=== PATIENT | female | born 1985 | race African-American/Black ===

== ENCOUNTER 2016-07-08 23:22 | Emergency (ER) | payer SELFPAY ==
--- NOTE | 2016-07-09 06:43 | ER Document Report ---
ED Respiratory Problem - General Chief Complaint: Cough Stated Complaint: COUGH Mode of Arrival: Ambulatory Information source: Patient Notes: 31-year-old female presents to the emergency department complaining of persistent cough over the last 2 weeks. Patient reports began with URI symptoms , cough, congestion, and sore throat approximately 2 weeks ago. Reports sore throat and congestion have resolved however cough has persisted. States over the last 2-3 days has had associated substernal pain and posttussive emesis during coughing bouts. Reports symptoms seem to be worse at night. States cough is productive with greenish yellow sputum. Denies fever, shortness of breath, or nausea/vomiting or chest pain without cough. TRAVEL OUTSIDE OF THE [place] IN LAST 30 DAYS: No - HPI Patient complains to provider of: Cough Onset: Last week Duration: Worse/persistent Initiating Event: URI Quality of pain: Achy Severity: Mild Pain Level: 2 Cough: Productive Sputum amount: Scant Sputum color: Green, Yellow Similar symptoms previously: Yes Recently seen / treated by doctor: No - Related Data Allergies/Adverse Reactions: No Known Drug Allergies Allergy (Verified 12/23/14 21:12) Past Medical History - General Information source: Patient - Social History Smoking Status: Never Smoker Frequency of alcohol use: None Drug Abuse: None Lives with: Family Family History: Reviewed & Not Pertinent - Past Medical History Cardiac Medical History: Denies: Hx Pulmonary Embolism Pulmonary Medical History: Reports: Hx Asthma - childhood, resolved Denies: Hx Sleep Apnea, Hx Tuberculosis Renal/ Medical History: Denies: Hx Peritoneal Dialysis Skin Medical History: Denies Hx MRSA Infectious Medical History: Denies: Hx MRSA Past Surgical History: Reports: Hx Section - Immunizations Immunizations up to date: Yes Hx Diphtheria, Pertussis, Tetanus Vaccination: Yes Review of Systems - Review of Systems Constitutional: No symptoms reported EENT: No symptoms reported Cardiovascular: No symptoms reported Respiratory: See HPI Gastrointestinal: No symptoms reported Genitourinary: No symptoms reported Female Genitourinary: No symptoms reported Musculoskeletal: No symptoms reported Skin: No symptoms reported Hematologic/Lymphatic: No symptoms reported Neurological/Psychological: No symptoms reported -: Yes All other systems reviewed and negative Physical Exam - Vital signs Vitals: Temp Pulse Resp BP Pulse Ox 97.5 F 80 16 138/92 H 98 07/08/16 23:57 07/08/16 23:57 07/08/16 23:57 07/08/16 23:57 07/08/16 23:57 Interpretation: Normal - General General appearance: Appears well, Alert In distress: None - HEENT Head: Normocephalic, Atraumatic Eyes: Normal Conjunctiva: Normal Pupils: PERRL Ears: Normal External canal: Normal Tympanic membrane: Normal Sinus: Normal Nasal: Normal Mouth/Lips: Normal Mucous membranes: Normal, Moist Pharynx: Normal. No: Blood in hypopharynx, Erythema, Exudate, Peritonsillar abscess, Post nasal drainage, Retropharyngeal abscess, Tonsillar hypertrophy, Uvular edema, Potential airway comprom., Other Neck: Normal - Respiratory Respiratory status: No respiratory distress. No: Labored, Tachypnea Chest status: Nontender Breath sounds: Normal - CTAB, Nonproductive cough. No: Rhonchi, Wheezing Chest palpation: Normal - Cardiovascular Rhythm: Regular Heart sounds: Normal auscultation Murmur: No Pulses: Normal: Radial Normal capillary refill: Yes - Abdominal Inspection: Normal Distension: No distension Bowel sounds: Normal Tenderness: Nontender Organomegaly: No organomegaly - Back Back: Normal, Nontender - Extremities General upper extremity: Normal inspection, Nontender, Normal color, Normal ROM , Normal strength, Normal temperature General lower extremity: Normal inspection, Nontender, Normal color, Normal ROM , Normal strength, Normal temperature, Normal weight bearing - Neurological Neuro grossly intact: Yes Cognition: Normal Orientation: AAOx4 Stephanie Coma Scale Eye Opening: Spontaneous Stephanie Coma Scale Verbal: Oriented [place] Coma Scale Motor: Obeys Commands Stephanie Coma Scale Total: 15 Speech: Normal Motor strength normal: LUE, RUE, LLE, RLE Sensory: Normal - Psychological Associated symptoms: Normal affect, Normal mood - Skin Skin Temperature: Warm Skin Moisture: Dry Skin Color: Normal Course - Re-evaluation Re-evalutation: 07/09/16 06:30 Patient hemodynamically stable, in no distress, afebrile, nontoxic, and appears well-hydrated. Patient is not dyspneic and very well-appearing. Chest x-ray unremarkable. No suggestion of significant or emergent infectious, cardiovascular, or pulmonary etiology at this time. Will treat for likely uncomplicated bronchitis at this time. Patient appears stable for discharge and agrees with this, follow-up, and ED return precautions - Vital Signs Vital signs: Temp Pulse Resp BP Pulse Ox 97.5 F 80 16 138/92 H 98 07/08/16 23:57 07/08/16 23:57 07/08/16 23:57 07/08/16 23:57 07/08/16 23:57 - Diagnostic Test Radiology reviewed: Image reviewed, Reports reviewed Discharge - Discharge Clinical Impression: Bronchitis Condition: Stable Disposition: HOME, SELF-CARE Additional Instructions: BRONCHITIS: You have acute bronchitis. This disease is an infection or inflammation of the air passageways in your lungs. Symptoms usually include cough, low grade fever, shortness of breath, and wheezing. The cough usually persists for a couple of weeks. Most cases of bronchitis get better without antibiotics. We prescribe antibiotics when we believe bacteria are damaging your airways, or if there's high risk the bronchitis will worsen into pneumonia. Increase your fluid intake. A cool mist humidifier may make your lungs more comfortable. An expectorant (cough medicine that loosens phlegm) can help. If you smoke, STOP!!! Recovery from bronchitis can be somewhat slow, but you should see improvement within a day or two. Repeated episodes of bronchitis may result in lung damage -- for example, chronic bronchitis, recurrent pneumonias, or emphysema. Call the doctor if you develop increasing fever, shortness of breath, chest pain, bloody sputum, or otherwise worsen. If you have not improved at all after several days, contact the physician. COUGH-SUPPRESSANT & EXPECTORANT MEDICATION: You are to use a cough medication as needed for relief of symptoms. This medicine is a combination of an expectorant (to make the mucous thinner and more easily "coughed up") and a cough suppressant (to reduce the frequency of coughing). The cough-suppressant medicine is related to narcotics. You may experience mild nausea and sleepiness. Some patients who are very sensitive to narcotics may have stomach pain from this medicine. Taking the medicine with food reduces these side effects. Do not drive or work with machinery until you know how this medicine affects you. The expectorant should have no side effects. Iodine-containing expectorants (such as organidin) should not be taken by persons with active thyroid disease unless approved by your doctor. Call the doctor if you develop shortness of breath, hives, rash, itching, lightheadedness, or severe nausea and vomiting. INHALED BRONCHODILATORS: You have received a treatment of and/or prescription for an inhaled bronchodilator -- a medication which stimulates the airways in the lung to dilate. This improves the flow of air in asthma, bronchitis, and emphysema. These medicines have some similarity to adrenaline, and can cause similar side effects: shakiness, racing heart, and a sense of nervousness. These side effects decrease with time. Contact your doctor if these side effects are severe. Do not over-use the medicine. Too-frequent use of the inhaler may make it ineffective. Call your doctor if the inhaler is not controlling your symptoms at the prescribed doses. STEROID MEDICATION: You have been given an injection of or oral medicine of the cortisone/ steroid class. This medication is used to control inflammation or allergy. Maikol t is usually only given for a short period of time, until the acute process subsides. There are usually no side effects from short-term use of cortisone-like medications. Some persons feel an increased sense of well-being and are not sleepy at bedtime. Long-term use of cortisone medications is best avoided, unless required for a severe condition. If your condition does not remit, or relapses after the course of corticosteroid medication, you should consult your physician. FOLLOW-UP CARE: Drink plenty of fluids. Follow-up with your primary care provider this week. Return to the emergency department for any worsening symptoms or concerns. Prescriptions: Guaifenesin/D-Methorphan Hb [Guaifenesin-Dextromethorph Tab] 1 each PO Q12HP PRN #8 tab.sr.12h PRN Reason: Cough Albuterol Sulfate [Proair HFA Inhalation Aerosol 8.5 gm MDI] 2 puff IH Q4H PRN # 1 mdi PRN Reason: Prednisone [Deltasone 10 mg Tablet] 10 mg PO ASDIR PRN #21 tablet PRN Reason: Forms: Elevated Blood Pressure, Return to Work
[2016-07-09 07:16] VITALS: BP 151/104
== END 2016-07-09 07:06 | disposition home or self-care (01) ==
LOC: ER 23:22
DX: J40 Bronchitis, not specified as acute or chronic (principal); R05 Cough; R07.89 Other chest pain
CPT/HCPCS: 71020; 99283

== ENCOUNTER 2017-10-21 11:30 | Emergency (ER) | payer SELFPAY ==
--- NOTE | 2017-10-21 12:52 | ER Document Report ---
ED Skin Rash/Insect Bite/Abscs - General Chief Complaint: Skin Problem Stated Complaint: POSSIBLE RASH, LEG SWELLING Time Seen by Provider: 10/21/17 12:44 Notes: The patient is a 32-year-old female who presents with 3 days of a rash over her left lower leg. She has had this multiple times in the past and saw a wood tank builder, but she is not sure what is causing this. Usually antibiotics and antifungal cream will make it go away. She denies fevers, bug bites, difficulty walking for a rash on her hands, feet or mouth. TRAVEL OUTSIDE OF THE [place] IN LAST 30 DAYS: No - Related Data Allergies/Adverse Reactions: No Known Drug Allergies Allergy (Verified 10/21/17 11:48) Past Medical History - General Information source: Patient - Social History Smoking Status: Never Smoker Chew tobacco use (# tins/day): No Frequency of alcohol use: Social Drug Abuse: None Family History: Reviewed & Not Pertinent Patient has suicidal ideation: No Patient has homicidal ideation: No - Past Medical History Cardiac Medical History: Denies: Hx Pulmonary Embolism Pulmonary Medical History: Reports: Hx Asthma - childhood, resolved Denies: Hx Sleep Apnea, Hx Tuberculosis Renal/ Medical History: Denies: Hx Peritoneal Dialysis Skin Medical History: Denies Hx MRSA Infectious Medical History: Denies: Hx MRSA Past Surgical History: Reports: Hx Section - Immunizations Immunizations up to date: Yes Hx Diphtheria, Pertussis, Tetanus Vaccination: Yes Review of Systems - Review of Systems Notes: REVIEW OF SYSTEMS: CONSTITUTIONAL: -fevers, -chills EENT: -eye pain, -difficulty swallowing, -nasal congestion RESPIRATORY: -cough, -SOB SKIN: +rash HEMATOLOGIC: -easy bruising or bleeding. LYMPHATIC: -swollen, enlarged glands. NEUROLOGICAL: -altered mental status or loss of consciousness, -headache, - neurologic symptoms ALL OTHER SYSTEMS REVIEWED AND NEGATIVE. Physical Exam - Vital signs Vitals: Temp Pulse Resp BP Pulse Ox 98.3 F 88 18 145/94 H 100 10/21/17 11:48 10/21/17 11:48 10/21/17 11:48 10/21/17 11:48 10/21/17 11:48 - Notes Notes: PHYSICAL EXAMINATION: GENERAL: Well-appearing, well-nourished and in no acute distress. HEAD: Atraumatic, normocephalic. EYES: Pupils equal round and reactive to light, extraocular movements intact, sclera anicteric, conjunctiva are normal. ENT: nares patent, oropharynx clear without exudates. Moist mucous membranes. NECK: Normal range of motion, supple without lymphadenopathy LUNGS: Breath sounds clear to auscultation bilaterally and equal. No wheezes rales or rhonchi. HEART: Regular rate and rhythm without murmurs ABDOMEN: Soft, nontender, normoactive bowel sounds. No guarding, no rebound. No masses appreciated. EXTREMITIES: Normal range of motion, no pitting or edema. No cyanosis. NEUROLOGICAL: Cranial nerves grossly intact. Normal speech, normal gait. Normal sensory and motor exams. PSYCH: Normal mood, normal affect. SKIN: discrete patch of scaly rash ~6 cm; lateral aspect of left lower leg with irregular pattern of erythema up leg Course - Re-evaluation Re-evalutation: Patient's rash appears benign in nature. She has had this multiple times in the past and it usually responds to antibiotics and antifungal cream. She has already seen a wood tank builder for this and instructed her to follow-up with the wood tank builder for further evaluation treatment. - Vital Signs Vital signs: Temp Pulse Resp BP Pulse Ox 98.3 F 88 18 145/94 H 100 10/21/17 11:48 10/21/17 11:48 10/21/17 11:48 10/21/17 11:48 10/21/17 11:48 Discharge - Discharge Clinical Impression: Rash Condition: Stable Disposition: HOME, SELF-CARE Additional Instructions: Take the antibiotics and use the antifungal cream. Follow-up with your wood tank builder. Prescriptions: Cephalexin Monohydrate [Keflex 500 mg Capsule] 500 mg PO BID 7 Days capsule Clotrimazole 1% Topical [Lotrimin 1% Topical Soln 10 ml] 15 applic TP DAILY #1 bottle Sulfamethoxazole/Trimethoprim [Bactrim Ds Tablet] 1 each PO BID #20 tablet Forms: Elevated Blood Pressure Referrals: [facility] [Outside] - Follow up as needed
[2017-10-21 12:58] VITALS: BP 152/99
== END 2017-10-21 12:58 | disposition home or self-care (01) ==
LOC: ER 11:30
DX: R21 Rash and other nonspecific skin eruption (principal)
CPT/HCPCS: 99282

== ENCOUNTER 2017-10-29 14:24 | Emergency (ER) | payer SELFPAY ==
[2017-10-29] MEDS ORDERED: ACETAMINOPHEN 325 MG TABLET PO ONE (14:51)
--- NOTE | 2017-10-29 14:52 | ER Document Report ---
ED Medical Screen (RME) - General Chief Complaint: Headache Stated Complaint: LOW BACK PAIN/ HEADACHE Time Seen by Provider: 10/29/17 14:30 TRAVEL OUTSIDE OF THE [place] IN LAST 30 DAYS: No - HPI Patient complains to provider of: Headache, low back pain radiating down leg Onset: Yesterday Notes: 10/29/17 14:51 Patient is a 32-year-old female presenting to the emergency room complaining of 2 day history of low back pain radiating down her legs, headache, noted to have a fever of 100.5 in triage area, denies any cough, cold or congestion, no abdominal pain, no vomiting or diarrhea - Related Data Allergies/Adverse Reactions: No Known Drug Allergies Allergy (Verified 10/29/17 14:25) Past Medical History - Social History Chew tobacco use (# tins/day): No Frequency of alcohol use: Occasional Drug Abuse: None - Past Medical History Cardiac Medical History: Reports: Hx Hypertension Denies: Hx Pulmonary Embolism Pulmonary Medical History: Reports: Hx Asthma - childhood, resolved Denies: Hx Sleep Apnea, Hx Tuberculosis Renal/ Medical History: Denies: Hx Peritoneal Dialysis Skin Medical History: Denies Hx MRSA Infectious Medical History: Denies: Hx MRSA Past Surgical History: Reports: Hx SectionComment Only: Hx Tonsillectomy - adnoids - Immunizations Immunizations up to date: Yes Hx Diphtheria, Pertussis, Tetanus Vaccination: Yes Physical Exam - Vital signs Vitals: Temp Pulse Resp BP Pulse Ox 100.5 F H 105 H 16 144/77 H 99 10/29/17 14:33 10/29/17 14:33 10/29/17 14:33 10/29/17 14:33 10/29/17 14:33 Course - Vital Signs Vital signs: Temp Pulse Resp BP Pulse Ox 100.5 F H 105 H 16 144/77 H 99 10/29/17 14:33 10/29/17 14:33 10/29/17 14:33 10/29/17 14:33 10/29/17 14:33
[2017-10-29 15:51] LABS: ALANINE AMINOTRANSFERASE 23 U/L (9-52); ALBUMIN 4.3 g/dL (3.5-5.0); ALKALINE PHOSPHATASE 72 U/L (38-126); ANION GAP 15 (5-19); ASPARTATE AMINO TRANSFERASE 20 U/L (14-36); BILIRUBIN,DIRECT 0.2 mg/dL (0.0-0.4); BILIRUBIN,TOTAL 0.8 mg/dL (0.2-1.3); BLOOD UREA NITROGEN 6 mg/dL (7-20); CALCIUM 9.7 mg/dL (8.4-10.2); CARBON DIOXIDE 25 mmol/L (22-30); CHLORIDE 104 mmol/L (98-107); GLUCOSE 93 mg/dL (75-110); POTASSIUM 4.5 mmol/L (3.6-5.0); SODIUM 144.2 mmol/L (137-145); TOTAL PROTEIN 7.6 g/dL (6.3-8.2)
[2017-10-29 15:53] LABS: BILIRUBIN,URINE NEGATIVE (NEGATIVE); GLUCOSE, URINE NEGATIVE (NEGATIVE); KETONES,URINE NEGATIVE (NEGATIVE); LEUKOCYTE ESTERASE,URINE MODERATE (NEGATIVE); NITRITE,URINE NEGATIVE (NEGATIVE); PROTEIN,URINE 100 mg/dL (NEGATIVE); URINE SPECIFIC GRAVITY 1.012; UROBILINOGEN,URINE NEGATIVE mg/dL (<2.0)
[2017-10-29 15:54] LABS: APPEARANCE,URINE TURBID; COLOR,URINE RED
[2017-10-29 16:00] LABS: HEMATOCRIT 35.8 % (36.0-47.0); HEMOGLOBIN 11.8 g/dL (12.0-15.5); MEAN CORPUSCULAR HEMOGLOBIN 29.5 pg (27.0-33.4); MEAN CORPUSCULAR HGB CONC 32.8 g/dL (32.0-36.0); MEAN CORPUSCULAR VOLUME 90 fl (80-97); PLATELET COUNT 293 10^3/uL (150-450); RED BLOOD COUNT 3.98 10^6/uL (3.72-5.28); RED CELL DISTRIBUTION WIDTH 12.8 % (11.5-14.0); WHITE BLOOD COUNT 14.8 10^3/uL (4.0-10.5)
[2017-10-29 16:20] LABS: ABSOLUTE LYMPHOCYTES# (MANUAL) 0.6 10^3/uL (0.5-4.7); ABSOLUTE MONOCYTES # (MANUAL) 0.3 10^3/uL (0.1-1.4); ABSOLUTE NEUTROPHILS# (MANUAL) 13.9 10^3/uL (1.7-8.2); BASOPHILS % (MANUAL) 0 % (0-2); EOSINOPHILS % (MANUAL) 0 % (0-6); LYMPHOCYTES % (MANUAL) 4 % (13-45); MONOCYTES % (MANUAL) 2 % (3-13); SEGMENTED NEUTROPHILS % (MAN) 94 % (42-78); TOTAL CELLS COUNTED 100
[2017-10-29 16:21] LABS: HYPOCHROMASIA SLIGHT; PLATELET COMMENT ADEQUATE; PLATELET LARGE PRESENT
--- NOTE | 2017-10-29 16:31 | ER Document Report ---
ED General - General Chief Complaint: Headache Stated Complaint: LOW BACK PAIN/ HEADACHE Time Seen by Provider: 10/29/17 14:30 Mode of Arrival: Ambulatory Information source: Patient Notes: 32-year-old female presented ED for complaint of body aches and headache for the last 2 days. She states she started her period and sometimes she has cramping but not like today. She also has some type of cellulitis to bilateral legs that she was seen here on 21 October and was given prescriptions for Keflex and Septra. She states she did not start them until this morning she cannot afford them. States she did take [email or web address] and she states she had a headache earlier but after she got the Tylenol the headache is much better. He states that the infection to the bilateral legs is much better she has been using the cream they gave her. TRAVEL OUTSIDE OF THE [place] IN LAST 30 DAYS: No - HPI Onset: Other - Body aches backache has been for 2 days started her period 2 days ago. The leg pain is where her rashes and that has been since before her last visit. Her headache has been for couple days Quality of pain: Achy Associated symptoms: Body/muscle aches, Chills, Fever, Headache, Other Exacerbated by: Denies Relieved by: Other Similar symptoms previously: Yes Recently seen / treated by doctor: Yes - Related Data Allergies/Adverse Reactions: No Known Drug Allergies Allergy (Verified 10/29/17 14:25) Past Medical History - General Information source: Patient Last Menstrual Period: She is on her period now - Social History Smoking Status: Never Smoker Cigarette use (# per day): No Chew tobacco use (# tins/day): No Smoking Education Provided: No Frequency of alcohol use: Occasional Drug Abuse: None Occupation: [employer] Lives with: Family Family History: Arthritis, DM, Hypertension Patient has suicidal ideation: No Patient has homicidal ideation: No - Past Medical History Cardiac Medical History: Reports: Hx Hypertension Pulmonary Medical History: Reports: Hx Asthma - childhood, resolved EENT Medical History: Reports: None Neurological Medical History: Reports: None Endocrine Medical History: Reports: None Renal/ Medical History: Reports: None Malignancy Medical History: Reports: None GI Medical History: Reports: None Musculoskeletal Medical History: Reports None Skin Medical History: Reports Hx Cellulitis Psychiatric Medical History: Reports: None Infectious Medical History: Denies: Hx MRSA Past Surgical History: Reports: Hx SectionComment Only: Hx Tonsillectomy - adnoids - Immunizations Immunizations up to date: Yes Hx Diphtheria, Pertussis, Tetanus Vaccination: Yes Review of Systems - Review of Systems Constitutional: Chills, Fever, Recent illness EENT: No symptoms reported Cardiovascular: No symptoms reported Respiratory: No symptoms reported Gastrointestinal: Abdominal pain Genitourinary: Frequency, Flank pain Female Genitourinary: No symptoms reported Musculoskeletal: Back pain, Muscle pain Skin: No symptoms reported Hematologic/Lymphatic: No symptoms reported Neurological/Psychological: Headaches -: Yes All other systems reviewed and negative Physical Exam - Vital signs Vitals: Temp Pulse Resp BP Pulse Ox 100.5 F H 105 H 16 144/77 H 99 10/29/17 14:33 10/29/17 14:33 10/29/17 14:33 10/29/17 14:33 10/29/17 14:33 Interpretation: Normal - General General appearance: Appears well, Alert - HEENT Head: Normocephalic, Atraumatic Eyes: Normal Pupils: PERRL - Respiratory Respiratory status: No respiratory distress Chest status: Nontender Breath sounds: Normal Chest palpation: Normal - Cardiovascular Rhythm: Regular Heart sounds: Normal auscultation Murmur: No - Abdominal Inspection: Normal Distension: No distension Bowel sounds: Normal Tenderness: Nontender Organomegaly: No organomegaly - Back Back: Normal, Nontender. No: Tender, Deformity/step-off, Vertebra tenderness, Scars - Extremities General upper extremity: Normal inspection, Nontender, Normal color, Normal ROM , Normal temperature General lower extremity: Normal color, Normal ROM, Normal temperature, Normal weight bearing. No: Fercho's sign Calf: Tender, Other - Cellulitis to both posterior calf she states she was prescribed Bactrim and Keflex but was not able to start until today - Neurological Neuro grossly intact: Yes Cognition: Normal Orientation: AAOx4 Stephanie Coma Scale Eye Opening: Spontaneous Stephanie Coma Scale Verbal: Oriented Stephanie Coma Scale Motor: Obeys Commands Stephanie Coma Scale Total: 15 Speech: Normal Motor strength normal: LUE, RUE, LLE, RLE Sensory: Normal - Psychological Associated symptoms: Normal affect, Normal mood - Skin Skin Temperature: Warm Skin Moisture: Dry Skin Color: Normal Course - Re-evaluation Re-evalutation: 10/29/17 16:[address] Jewell and she agreed that shot of Rocephin and patient to continue the antibiotics she is already prescribed will cover her UTI. Urine culture was ordered. Patient will be discharged home. Patient verbalized understanding of need to take her antibiotics as prescribed and increase her p.o. fluids. She was also given a prescription of Compazine to take with Benadryl and ibuprofen for her headache. Patient instructed to follow -up with her primary doctor. Patient verbalized understanding and agreement. - Vital Signs Vital signs: Temp Pulse Resp BP Pulse Ox 98.9 F 98 16 145/87 H 98 10/29/17 16:44 10/29/17 16:44 10/29/17 14:33 10/29/17 16:44 10/29/17 16:44 - Laboratory Result Diagrams: 10/29/17 15:20 10/29/17 15:20 Laboratory results interpreted by me: 10/29/17 10/29/17 10/29/17 15:20 15:20 15:20 WBC 14.8 H Hgb 11.8 L Hct 35.8 L Seg Neuts % (Manual) 94 H Lymphocytes % (Manual) 4 L Monocytes % (Manual) 2 L Abs Neuts (Manual) 13.9 H BUN 6 L Urine Protein 100 H Urine Blood LARGE H Ur Leukocyte Esterase MODERATE H Discharge - Discharge Clinical Impression: Headache Qualifiers: Headache type: unspecified Headache chronicity pattern: unspecified pattern Intractability: not intractable Qualified Code(s): R51 - Headache UTI (urinary tract infection) Qualifiers: Urinary tract infection type: site unspecified Hematuria presence: without hematuria Qualified Code(s): N39.0 - Urinary tract infection, site not specified Condition: Stable Disposition: HOME, SELF-CARE Instructions: Family Physicians / Practices Additional Instructions: HEADACHE: The physician does not feel that the headache you are experiencing has a serious underlying cause. Most headaches are due to emotional stress, with resultant muscle tension (tension headache). Occasionally, headaches are secondary to changes in the blood vessels of the scalp (vascular headache and migraine headache). Sometimes, a headache is the first symptom of another developing illness, such as a viral infection. You have no evidence of stroke, bleeding, meningitis, or other serious cause of your headache. The treatment of headaches varies with the severity and cause of the pain. Not all headaches need pain shots. In fact, there is evidence that using narcotics for headaches may make them worse in the long run. The physician will determine the therapy that's in your best interest. If you develop a fever, if the headache is different from any you've previously experienced, or if the headache progressively worsens, then call your physician at once or go to the emergency room. URINARY TRACT INFECTION: Your evaluation indicates that you have a urinary tract infection. This is due to germs growing in the bladder. This is a common problem. This infection usually responds quickly to antibiotics. Your antibiotic should be taken exactly as prescribed. Drink plenty of fluids -- three to four quarts a day. Occasionally, a bladder anesthetic will be prescribed to help stop the feeling of urgency until the antibiotic has a chance to clear the infection. This may cause your urine to be dark orange. Certain urine infections require a culture. If the doctor obtained a culture, the results will be back in two days. You should call to see if a change in treatment is needed. A repeat urinalysis after you finish treatment is often recommended. The physician will let you know if further testing is required. Call the doctor if you develop fever, chills, flank pain, inability to urinate, or blood in the urine. USE OF DIPHENHYDRAMINE: Diphenhydramine (Benadryl) is an antihistamine and has been recommended to help treat your headache and to prevent side effects of other medications used to treat headaches. The medication can be repeated four times daily. Age Elixir (12.5 mg/tsp) 25 mg pill adult 1-2 tabs Antihistamines may cause drowsiness, especially with the first dose. Do not operate machinery or drive while under the effects of the medication. Do not combine the medication with alcohol, or with any other medication without talking to your doctor. COMPAZINE FOR HEADACHE: You have received therapy for headaches, using Compazine. This treatment is dramatically successful in relieving the headache in about 50 percent of cases. When it works, it provides a rapid method of eliminating the headache without resorting to narcotics (and the problems associated with them). Most patients still feel fully alert after the Compazine, but others may be slightly drowsy. It's best not to drive or work with machinery for six to eight hours. Do not take alcohol or other medication unless you discuss it with the doctor. If you develop tightness and spasms in your muscles, especially the neck and tongue, you should return. This is a side effect which can be treated. TRIMETHOPRIM-SULFA: Continue your Bactrim that she just started this morning. You have been given a prescription for trimethoprim-sulfa (TMS, Septra, Bactrim). This is a combination antibiotic of the sulfa class, often used for urinary tract infections, middle ear infections, bronchitis, shigella intestinal infection, and Pneumocystis pneumonia. TMS is usually well-tolerated. Occasional side effects include nausea and decreased appetite. Septra is not recommended for infants less than two months of age. Do not take this medication if you have experienced severe side effects or allergy to sulfa medicine. You should stop this medicine at once and contact your physician if you develop any rash, joint pain, shortness of breath, bruising, or jaundice ( yellow color in the skin), or if you develop any other new or unusual symptoms. CEPHALEXIN: Continue your Keflex that she just started this morning The antibiotic you've been prescribed is a member of the cephalosporin class. This type of antibiotic covers a wide variety of infections, including those of the skin, lungs, and urinary tract. It's useful for staph infections. This antibiotic is slightly similar to the penicillin family. In rare cases , a person who is allergic to penicillin will also be allergic to this medication. If you have had a severe allergic reaction to penicillin, and have not taken this antibiotic since that time, notify your doctor. Antibiotics which cover many germs ("broad spectrum" antibiotics) are more likely to cause diarrhea or "yeast" infections. Women prone to vaginal yeast problems may suffer an attack after taking this antibiotic. In infants, oral thrush (white spots "stuck" on the cheek) or yeast diaper rash may result. See your doctor if these problems occur. Call at once if you develop itching, hives , shortness of breath, or lightheadedness. Call your primary doctor and schedule a follow-up appointment to have a urine done in 1 week. If you cannot follow-up with her primary doctor return here and have your urine rechecked. Please return for any increasing fevers any other complications. FOLLOW-UP CARE: If you have been referred to a physician for follow-up care, call the physician s office for an appointment as you were instructed or within the next two days. If you experience worsening or a significant change in your symptoms, notify the physician immediately or return to the Emergency Department at any time for re-evaluation. Prescriptions: Prochlorperazine Maleate [Compazine 10 mg Tablet] 10 mg PO Q6HP PRN #10 tablet PRN Reason: Forms: Elevated Blood Pressure, Return to Work
[2017-10-29] MEDS ORDERED: CEFTRIAXONE INJ 1000 MG VIAL IM ONE (16:32)
[2017-10-29] MEDS ORDERED: LIDOCAINE 1% INJ-PF (10 MG/ML) 30 ML SDV INJ ONE (16:32)
[2017-10-29 16:45] VITALS: BP 145/87
== END 2017-10-29 17:05 | disposition home or self-care (01) ==
LOC: ER 14:24
DX: N39.0 Urinary tract infection, site not specified (principal); R51 Headache; M54.5 Low back pain; M79.1 Myalgia; I10 Essential (primary) hypertension
CPT/HCPCS: 99283; 96372; 36415; 87086; 85025; 81025; 87088; 80053; 81001; J3490; J0696

== ENCOUNTER 2017-11-03 12:44 | Emergency (ER) | payer SELFPAY ==
--- NOTE | 2017-11-03 15:31 | RADIOLOGY REPORT (SQ) ---
EXAM DESCRIPTION: VENOUS BILATERAL LOWER COMPLETED DATE/TIME: 11/03/2017 3:24 pm REASON FOR STUDY: leg swelling L>right COMPARISON: None. TECHNIQUE: Dynamic and static morin scale and color images acquired of both lower extremity venous sy stems. Selected spectral images acquired with additional compression and augmentation maneuvers. Imag es stored on PACS. LIMITATIONS: None. FINDINGS: RIGHT LEG COMMON FEMORAL AND FEMORAL: Normal phasicity, compression and augmentation. No visualized echogenic m aterial on morin scale. No defects on color images. POPLITEAL: Normal compression and augmentation. No visualized echogenic material on morin scale. No de fects on color images. CALF VESSELS: Normal compression and augmentation. No visualized echogenic material on morin scale. No defects on color image. GSV AND SSV: Normal compression. No visualized echogenic material on morin scale. No defects on color images. ANY DEEP VENOUS INSUFFICIENCY: Not evaluated. ANY EVIDENCE OF POPLITEAL CYST: No. OTHER: No other significant finding. LEFT LEG COMMON FEMORAL AND FEMORAL: Normal phasicity, compression and augmentation. No visualized echogenic m aterial on morin scale. No defects on color images. POPLITEAL: Normal compression and augmentation. No visualized echogenic material on morin scale. No de fects on color images. CALF VESSELS: Normal compression and augmentation. No visualized echogenic material on morin scale. No defects on color images. GSV AND SSV: Normal compression. No visualized echogenic material on morin scale. No defects on color images. ANY DEEP VENOUS INSUFFICIENCY: Not evaluated. ANY EVIDENCE POPLITEAL CYST: No. OTHER: No other significant finding. IMPRESSION: NO EVIDENCE DVT OR SVT IN EITHER LEG. TECHNICAL DOCUMENTATION: JOB ID: [id number] [employer]- All Rights Reserved Reading location - IP/workstation name: [email or web address]
--- NOTE | 2017-11-03 15:46 | ER Document Report ---
ED General - General Chief Complaint: Leg Swelling Stated Complaint: LEG SWELLING Time Seen by Provider: 11/03/17 13:35 TRAVEL OUTSIDE OF THE [place] IN LAST 30 DAYS: No - Related Data Allergies/Adverse Reactions: No Known Drug Allergies Allergy (Verified 11/03/17 13:31) Past Medical History - Social History Smoking Status: Never Smoker Chew tobacco use (# tins/day): No Frequency of alcohol use: Occasional Drug Abuse: None Family History: Arthritis, DM, Hypertension Patient has suicidal ideation: No Patient has homicidal ideation: No - Past Medical History Cardiac Medical History: Reports: Hx Hypertension Denies: Hx Pulmonary Embolism Pulmonary Medical History: Reports: Hx Asthma - childhood, resolved Denies: Hx Sleep Apnea, Hx Tuberculosis Renal/ Medical History: Denies: Hx Peritoneal Dialysis Skin Medical History: Reports Hx Cellulitis, Denies Hx MRSA Infectious Medical History: Denies: Hx MRSA Past Surgical History: Reports: Hx SectionComment Only: Hx Tonsillectomy - adnoids - Immunizations Immunizations up to date: Yes Hx Diphtheria, Pertussis, Tetanus Vaccination: Yes Physical Exam - Vital signs Vitals: Temp Pulse Resp BP Pulse Ox 98 F 87 18 116/63 100 11/03/17 12:55 11/03/17 12:55 11/03/17 12:55 11/03/17 12:55 11/03/17 12:55 Course - Vital Signs Vital signs: Temp Pulse Resp BP Pulse Ox 98 F 87 18 116/63 100 11/03/17 12:55 11/03/17 12:55 11/03/17 12:55 11/03/17 12:55 11/03/17 12:55 Discharge - Discharge Clinical Impression: Localized swelling of both lower legs, Cellulitis Condition: Good Disposition: HOME, SELF-CARE Instructions: Cellulitis ([facility]), Dependent Edema ([facility]) Additional Instructions: Your ultrasound today does not show any signs of blood clots. Your examination today shows slight skin infection otherwise normal cellulitis. Please continue the antibiotics as previously prescribed. Return to ER symptoms worsen follow- up with your primary care physician. We recommend elevating her legs at nighttime. Until the infectious process totally resolved she will have increased swelling even after he finished her antibiotics I would expect the swelling to continue for another 7 days. Please continue to elevate he can try to compression stockings as prescribed to help out with any swelling.
--- NOTE | 2017-11-03 15:48 | ER Document Report ---
ED General - General Chief Complaint: Leg Swelling Stated Complaint: LEG SWELLING Time Seen by Provider: 11/03/17 13:35 TRAVEL OUTSIDE OF THE [place] IN LAST 30 DAYS: No - HPI Patient complains to provider of: Bilateral leg swelling Notes: Patient coming in for bilateral leg swelling left greater than right. Patient states ongoing for greater than a week. Patient states was seen a few days ago at urgent care diagnosed with cellulitis has only been on antibiotics Keflex and Bactrim for the last 2 days. Patient states more concerned about swelling especially that the left leg is bigger. Denies any recent travel or trauma denies history of DVT in the past. Patient denies history of any renal issues or hypertension. Patient states whenever she was not at work and elevating her legs at home the swelling would go down. Patient denies wearing compression stockings. - Related Data Allergies/Adverse Reactions: No Known Drug Allergies Allergy (Verified 11/03/17 13:31) Past Medical History - Social History Smoking Status: Never Smoker Chew tobacco use (# tins/day): No Frequency of alcohol use: Occasional Drug Abuse: None Family History: Arthritis, DM, Hypertension Patient has suicidal ideation: No Patient has homicidal ideation: No - Past Medical History Cardiac Medical History: Reports: Hx Hypertension Denies: Hx Pulmonary Embolism Pulmonary Medical History: Reports: Hx Asthma - childhood, resolved Denies: Hx Sleep Apnea, Hx Tuberculosis Renal/ Medical History: Denies: Hx Peritoneal Dialysis Skin Medical History: Reports Hx Cellulitis, Denies Hx MRSA Infectious Medical History: Denies: Hx MRSA Past Surgical History: Reports: Hx SectionComment Only: Hx Tonsillectomy - adnoids - Immunizations Immunizations up to date: Yes Hx Diphtheria, Pertussis, Tetanus Vaccination: Yes Review of Systems - Review of Systems Constitutional: No symptoms reported EENT: No symptoms reported Cardiovascular: No symptoms reported Respiratory: No symptoms reported Gastrointestinal: No symptoms reported Genitourinary: No symptoms reported Female Genitourinary: No symptoms reported Musculoskeletal: Leg swelling Skin: No symptoms reported Hematologic/Lymphatic: No symptoms reported Neurological/Psychological: No symptoms reported -: Yes All other systems reviewed and negative Physical Exam - Vital signs Vitals: Temp Pulse Resp BP Pulse Ox 98 F 87 18 116/63 100 11/03/17 12:55 11/03/17 12:55 11/03/17 12:55 11/03/17 12:55 11/03/17 12:55 Interpretation: Normal - General General appearance: Appears well, Alert - HEENT Head: Normocephalic, Atraumatic Eyes: Normal Pupils: PERRL - Respiratory Respiratory status: No respiratory distress Chest status: Nontender Breath sounds: Normal Chest palpation: Normal - Cardiovascular Rhythm: Regular Heart sounds: Normal auscultation Murmur: No - Abdominal Inspection: Normal Distension: No distension Bowel sounds: Normal Tenderness: Nontender Organomegaly: No organomegaly - Back Back: Normal, Nontender - Extremities General upper extremity: Normal inspection, Nontender, Normal color, Normal ROM , Normal temperature General lower extremity: Nontender, Edema, Normal color, Normal ROM, Normal temperature, Normal weight bearing. No: Normal inspection - Patient coming in for leg swelling left greater than right patient has venous stasis changes to the skin with some erythema around his venous stasis changes possibly consistent with cellulitis process. There is no calf tenderness bilaterally - Neurological Neuro grossly intact: Yes Cognition: Normal Orientation: AAOx4 Rowan Coma Scale Eye Opening: Spontaneous Stephanie Coma Scale Verbal: Oriented Stephanie Coma Scale Motor: Obeys Commands Stephanie Coma Scale Total: 15 Speech: Normal Motor strength normal: LUE, RUE, LLE, RLE Sensory: Normal - Psychological Associated symptoms: Normal affect, Normal mood - Skin Skin Temperature: Warm Skin Moisture: Dry Skin Color: Normal Course - Re-evaluation Re-evalutation: 11/03/17 20:20 Ultrasound negative for DVT. Patient was encouraged to continue her antibiotics at this time. Follow-up primary care physician elevate her legs whenever not working. Will give the patient a prescription for compression stockings. - Vital Signs Vital signs: Temp Pulse Resp BP Pulse Ox 98.8 F 83 18 124/75 100 11/03/17 15:55 11/03/17 15:55 11/03/17 15:55 11/03/17 15:55 11/03/17 15:55 Discharge - Discharge Clinical Impression: Localized swelling of both lower legs Cellulitis Qualifiers: Site of cellulitis: unspecified site Qualified Code(s): L03.90 - Cellulitis, unspecified Condition: Good Disposition: HOME, SELF-CARE Instructions: Cellulitis ([facility]), Dependent Edema ([facility]) Additional Instructions: Your ultrasound today does not show any signs of blood clots. Your examination today shows slight skin infection otherwise normal cellulitis. Please continue the antibiotics as previously prescribed. Return to ER symptoms worsen follow- up with your primary care physician. We recommend elevating her legs at nighttime. Until the infectious process totally resolved she will have increased swelling even after he finished her antibiotics I would expect the swelling to continue for another 7 days. Please continue to elevate he can try to compression stockings as prescribed to help out with any swelling. Prescriptions: Compression Socks, Medium [Futuro Restoring] 1 each [facility] DAILY #1 each Forms: Return to Work
[2017-11-03 15:57] VITALS: BP 124/75
== END 2017-11-03 15:55 | disposition home or self-care (01) ==
LOC: ER 12:44
DX: M79.89 Other specified soft tissue disorders (principal); L03.90 Cellulitis, unspecified; I10 Essential (primary) hypertension
CPT/HCPCS: 93970; 99283

== ENCOUNTER 2018-03-08 15:01 | Emergency (ER) | payer SELFPAY ==
--- NOTE | 2018-03-08 15:36 | ER Document Report ---
ED Medical Screen (RME) - General TRAVEL OUTSIDE OF THE [place] IN LAST 30 DAYS: No - General Chief Complaint: Skin Problem Stated Complaint: BLISTERS Time Seen by Provider: 03/08/18 15:26 Notes: 32-year-old female who presents to the emergency department today with complaints of a 4-day history of a rash diffusely spread across her body. Patient complains of left leg and foot swelling as well. The rash is erythematous and also has a significant amount of skin peeling. Patient denies any exposure to ticks. Patient states the rash does not itch. Patient denies any medications, drainage from the affected area, or usage of new products. I have greeted and performed a rapid initial assessment of this patient. A comprehensive ED assessment and evaluation of the patient, analysis of test results, and completion of the medical decision making process will be conducted by additional ED providers. Review of systems: Constitutional: Denies: Fevers EENT: No symptoms reported Cardiovascular: No symptoms reported Respiratory: No symptoms reported Gastrointestinal: No symptoms reported Genitourinary: No symptoms reported Musculoskeletal: No symptoms reported Skin: Rash Hematologic/Lymphatic: No symptoms reported Neurological/Psychological: No symptoms reported Yes All other systems reviewed and negative PHYSICAL EXAM GENERAL: Alert, interacts well. No acute distress. HEAD: Normocephalic, atraumatic. EYES: Pupils equal, round, and reactive to light. Extraocular movements intact. ENT: Oral mucosa moist, tongue midline. NECK: Full range of motion. Supple. Trachea midline. LUNGS: No respiratory distress. EXTREMITIES: Moves all 4 extremities spontaneously. NEUROLOGICAL: Alert and oriented x3. Normal speech. PSYCH: Normal affect, normal mood. SKIN: Limited exam due to clothing. Will be placed in another room and put in a gown for further examination. Diffuse erythematous rash across the bilateral legs with skin peeling. Negative Nikolsky sign. Similar to erythema multiforme. Some areas of the legs are similar to pustules with no drainage. Area is nontender with palpation. (CARMELO GARCIA) - Related Data Allergies/Adverse Reactions: No Known Drug Allergies Allergy (Verified 11/03/17 13:31) Past Medical History - Past Medical History Cardiac Medical History: Reports: Hx Hypertension Denies: Hx Pulmonary Embolism Pulmonary Medical History: Reports: Hx Asthma - childhood, resolved Denies: Hx Sleep Apnea, Hx Tuberculosis Renal/ Medical History: Denies: Hx Peritoneal Dialysis Skin Medical History: Reports Hx Cellulitis, Denies Hx MRSA Infectious Medical History: Denies: Hx MRSA Past Surgical History: Reports: Hx SectionComment Only: Hx Tonsillectomy - adnoids - Immunizations Immunizations up to date: Yes Hx Diphtheria, Pertussis, Tetanus Vaccination: Yes - Vital signs Vitals: Temp Pulse Resp BP Pulse Ox 99.0 F 96 16 141/83 H 100 03/08/18 15:06 03/08/18 15:06 03/08/18 15:06 03/08/18 15:06 03/08/18 15:06 - Vital Signs Vital signs: Temp Pulse Resp BP Pulse Ox 99.0 F 96 16 141/83 H 100 03/08/18 15:06 03/08/18 15:06 03/08/18 15:06 03/08/18 15:06 03/08/18 15:06 Scribe Documentation - Scribe Written by Lakisha:: Lakisha Hansen, 03/08/2018 1535 acting as scribe for :: Stephy
--- NOTE | 2018-03-08 16:29 | ER Document Report ---
HPI - HPI Patient complains to provider of: rash Time Seen by Provider: 03/08/18 15:26 Onset: Last week Quality of pain: No pain Pain Level: 4 Context: Patient presents emergency department with complaints of a rash that is started approximately 1 week ago. Patient reports she has had it for times since 2013. Reports it is itchy that comes and goes. Denies other symptoms such as fever vomiting diarrhea. Reports the rash started on her legs and moved up to her thighs now is widespread on her trunk. Denies new medications new lotions. Denies recent trips reports she was treated with steroids for last time she had it. Reports she is also seen a commercial center manager but they never diagnosed it. Associated Symptoms: None Exacerbated by: Denies Relieved by: Denies Similar symptoms previously: Yes Recently seen / treated by doctor: No - REPRODUCTIVE Reproductive: DENIES: : Past Medical History - General Information source: Patient Last Menstrual Period: Current - Social History Smoking Status: Never Smoker Cigarette use (# per day): No Frequency of alcohol use: None Drug Abuse: None Lives with: Family Family History: Arthritis, DM, Hypertension Patient has suicidal ideation: No Patient has homicidal ideation: No - Past Medical History Cardiac Medical History: Reports: Hx Hypertension Denies: Hx Pulmonary Embolism Pulmonary Medical History: Reports: Hx Asthma - childhood, resolved Denies: Hx Sleep Apnea, Hx Tuberculosis Renal/ Medical History: Denies: Hx Peritoneal Dialysis Skin Medical History: Reports Hx Cellulitis, Denies Hx MRSA Infectious Medical History: Denies: Hx MRSA Past Surgical History: Reports: Hx SectionComment Only: Hx Tonsillectomy - adnoids - Immunizations Immunizations up to date: Yes Hx Diphtheria, Pertussis, Tetanus Vaccination: Yes Vertical Provider Document - CONSTITUTIONAL Agree With Documented VS: Yes Exam Limitations: No Limitations General Appearance: WD/WN, No Apparent Distress - INFECTION CONTROL TRAVEL OUTSIDE OF THE [place] IN LAST 30 DAYS: No - HEENT HEENT: Atraumatic, Normocephalic. negative: Conjuctival Injection, Pharyngeal Exudate, Pharyngeal Erythema - NECK Neck: Normal Inspection, Supple - RESPIRATORY Respiratory: No Respiratory Distress - CARDIOVASCULAR Cardiovascular: Regular Rate - GI/ABDOMEN Gastrointestinal: Abdomen Soft, Abdomen Non-Tender - MUSCULOSKELETAL/EXTREMETIES Musculoskeletal/Extremeties: FREDDIE LOCKHART - NEURO Level of Consciousness: Awake, Alert, Appropriate Motor/Sensory: No Motor Deficit - DERM Integumentary: Warm, Dry, Rash - Widespread areas of scaly/peeling skin surrounded by scattered erythemic to her legs and thigh. Back with multiple scaly areas, no erythema, no warmth, no pustules, no blisters. Multiple areas to her breast and abdomen of scaly/peeling skin surrounded by erythema, no warmth no pustules no vesicles Course - Re-evaluation Re-evalutation: 03/08/18 16:52 Dr. burton in to assess patient's skin agrees with treatment patient instructed on head and shoulders or Selsun Blue also instructed to follow-up with commercial center manager she verbalized understanding Dictation of this chart was performed using voice recognition software; therefore, there may be some unintended grammatical errors. - Vital Signs Vital signs: Temp Pulse Resp BP Pulse Ox 99.0 F 96 16 141/83 H 100 03/08/18 15:06 03/08/18 15:06 03/08/18 15:06 03/08/18 15:06 03/08/18 15:06 Discharge - Discharge Clinical Impression: Rash in adult Condition: Stable Disposition: HOME, SELF-CARE Instructions: Butter Melter Additional Instructions: *You have been treated for a rash, suspect fungal rash *wash your body with either Selsun Blue or head and shoulders *Apply lotion *Monitor your skin for signs of infection such as pain, drainage,redness, swelling, warmth *Follow up with a commercial center manager within 1 week *Return to ED for signs of infection, worsening condition, changes, needs Monitor your blood pressure. Your blood pressure was elevated today. This may be because you were anxious, in pain or because you need medication. It is important to follow up with your primary care provider for full evaluation. Forms: Elevated Blood Pressure, Return to Work
[2018-03-08 17:05] VITALS: BP 149/93
== END 2018-03-08 17:00 | disposition home or self-care (01) ==
LOC: ER 15:01
DX: R21 Rash and other nonspecific skin eruption (principal); I10 Essential (primary) hypertension; J45.909 Unspecified asthma, uncomplicated
CPT/HCPCS: 99283

== ENCOUNTER 2018-12-30 05:25 | Emergency (ER) | payer SELFPAY ==
[2018-12-30] MEDS ORDERED: NORMAL SALINE 1000 ML 1,000 ML IV ONE (06:20)
[2018-12-30 06:41] LABS: APPEARANCE,URINE SLIGHTLY-CLOUDY; BILIRUBIN,URINE NEGATIVE (NEGATIVE); COLOR,URINE YELLOW; GLUCOSE, URINE NEGATIVE (NEGATIVE); KETONES,URINE NEGATIVE (NEGATIVE); LEUKOCYTE ESTERASE,URINE NEGATIVE (NEGATIVE); NITRITE,URINE NEGATIVE (NEGATIVE); PROTEIN,URINE 100 mg/dL (NEGATIVE); URINE SPECIFIC GRAVITY 1.021
--- NOTE | 2018-12-30 06:46 | ER Document Report ---
ED General - General Chief Complaint: Vag Bleeding, +preg <12wks Stated Complaint: VAGINAL BLEEDING Time Seen by Provider: 12/30/18 06:00 Mode of Arrival: Ambulatory Information source: Patient TRAVEL OUTSIDE OF THE [place] IN LAST 30 DAYS: No - HPI Notes: Patient presents for vaginal bleeding. Patient states that this morning she was urinating when she noticed blood in her underwear. She states it is been a mild amount. She has not seen any clots. She has had some mild abdominal cramping. She states she is currently 10 weeks . She denies any problems with this or previous episodes of bleeding with this . She states that this is her third and there are no problems with the other 2 pregnancies. The cramping in her abdomen is mild and intermittent. Nothing makes it better or worse. It does not radiate. She had no vomiting or diarrhea. No lightheadedness or dizziness. - Related Data Allergies/Adverse Reactions: No Known Drug Allergies Allergy (Verified 11/03/17 13:31) Past Medical History - General Information source: Patient Last Menstrual Period: 10/18/2018 - Social History Smoking Status: Never Smoker Frequency of alcohol use: None Drug Abuse: None Family History: Arthritis, DM, Hypertension Patient has suicidal ideation: No Patient has homicidal ideation: No - Past Medical History Cardiac Medical History: Reports: Hx Hypertension Denies: Hx Pulmonary Embolism Pulmonary Medical History: Reports: Hx Asthma - childhood, resolved Denies: Hx Sleep Apnea, Hx Tuberculosis Renal/ Medical History: Denies: Hx Peritoneal Dialysis Skin Medical History: Reports Hx Cellulitis, Denies Hx MRSA Infectious Medical History: Denies: Hx MRSA Past Surgical History: Reports: Hx SectionComment Only: Hx Tonsillectomy - adnoids - Immunizations Immunizations up to date: Yes Hx Diphtheria, Pertussis, Tetanus Vaccination: Yes Review of Systems - Review of Systems Constitutional: denies: Chills, Fever Cardiovascular: denies: Chest pain, Palpitations Respiratory: denies: Cough, Short of breath Gastrointestinal: Abdominal pain, Nausea. denies: Diarrhea -: Yes All other systems reviewed and negative Physical Exam - Vital signs Vitals: Temp Pulse Resp BP Pulse Ox 97.9 F 83 17 144/96 H 99 12/30/18 05:30 12/30/18 05:30 12/30/18 05:30 12/30/18 05:30 12/30/18 05:30 Interpretation: Normal - General General appearance: Appears well, Alert - HEENT Head: Normocephalic, Atraumatic Eyes: Normal Pupils: PERRL - Respiratory Respiratory status: No respiratory distress Chest status: Nontender Breath sounds: Normal Chest palpation: Normal - Cardiovascular Rhythm: Regular Heart sounds: Normal auscultation Murmur: No - Abdominal Inspection: Normal Distension: No distension Bowel sounds: Normal Tenderness: Nontender Organomegaly: No organomegaly - Back Back: Normal, Nontender - Extremities General upper extremity: Normal inspection, Nontender, Normal color, Normal ROM, Normal temperature General lower extremity: Normal inspection, Nontender, Normal color, Normal ROM, Normal temperature, Normal weight bearing. No: Fercho's sign - Neurological Neuro grossly intact: Yes Cognition: Normal Orientation: AAOx4 [place] Coma Scale Eye Opening: Spontaneous Stephanie Coma Scale Verbal: Oriented [place] Coma Scale Motor: Obeys Commands [place] Coma Scale Total: 15 Speech: Normal Motor strength normal: LUE, RUE, LLE, RLE Sensory: Normal - Psychological Associated symptoms: Normal affect, Normal mood - Skin Skin Temperature: Warm Skin Moisture: Dry Skin Color: Normal Course - Re-evaluation Re-evalutation: 12/30/18 07:56 Patient reevaluated just now. Vital signs are stable. Work-up was unremarkable. Ultrasound shows an intrauterine with a good heartbeat. I have educated the patient about first trimester vaginal bleeding and the need for follow-up with BENEFITS ANALYST. - Vital Signs Vital signs: Temp Pulse Resp BP Pulse Ox 97.9 F 83 17 144/96 H 99 12/30/18 05:30 12/30/18 05:30 12/30/18 05:30 12/30/18 05:30 12/30/18 05:30 - Laboratory Result Diagrams: 12/30/18 06:55 12/30/18 06:55 Laboratory results interpreted by me: 12/30/18 12/30/18 12/30/18 06:15 06:55 06:55 WBC 12.3 H Hgb 11.8 L Hct 35.3 L Lymph % (Auto) 12.4 L Absolute Neuts (auto) 10.1 H Seg Neutrophils % 81.9 H BUN 4 L Creatinine 0.50 L Urine Protein 100 H Urine Blood MODERATE H Urine Urobilinogen 2.0 H - Diagnostic Test Radiology reviewed: Image reviewed, Reports reviewed Discharge - Discharge Clinical Impression: Threatened Condition: Stable Disposition: HOME, SELF-CARE Admitting Provider: [facility] Instructions: Ob-Sign Writer Letterer Or Painter Doctors, ([facility]), Threatened Miscarriage ([facility]) Additional Instructions: It is very important that you make an appointment with your BENEFITS ANALYST doctor as soon as possible to schedule a recheck
[2018-12-30 07:12] LABS: ABSOLUTE LYMPHOCYTES (AUTO) 1.5 10^3/uL (0.5-4.7); ABSOLUTE MONOCYTES (AUTO) 0.6 10^3/uL (0.1-1.4); ABSOLUTE NEUT (AUTO) 10.1 10^3/uL (1.7-8.2); BASOPHILS % (AUTO) 0.2 % (0-2); EOSINOPHILS % (AUTO) 0.3 % (0-6); HEMATOCRIT 35.3 % (36.0-47.0); HEMOGLOBIN 11.8 g/dL (12.0-15.5); LYMPHOCYTES % (AUTO) 12.4 % (13-45); MEAN CORPUSCULAR HEMOGLOBIN 29.8 pg (27.0-33.4); MEAN CORPUSCULAR HGB CONC 33.5 g/dL (32.0-36.0); MEAN CORPUSCULAR VOLUME 89 fl (80-97); MONOCYTES % (AUTO) 5.2 % (3-13); PLATELET COUNT 274 10^3/uL (150-450); RED BLOOD COUNT 3.96 10^6/uL (3.72-5.28); RED CELL DISTRIBUTION WIDTH 13.6 % (11.5-14.0); SEGMENTED NEUTROPHILS % (AUTO) 81.9 % (42-78); TOTAL CELLS COUNTED % (AUTO) 100 %; WHITE BLOOD COUNT 12.3 10^3/uL (4.0-10.5)
--- NOTE | 2018-12-30 07:19 | RADIOLOGY REPORT (SQ) ---
EXAM: Ultrasound less than 14 weeks CLINICAL DATA: 33-year-old female with pain and bleeding. LMP: 10/29/2018, BREN: 07/26/2019, EGA: 10 weeks two days TECHNICAL DATA: Sonographic imaging of the pelvis was performed transabdominally on 12/30/2018 at 6:41 AM COMPARISONS: None FINDINGS: The uterus is mildly enlarged and measures: 13.6 x 7.6 x 7.3 cm. There is a focal hypoechoic mass within the uterine fundus to the left of midline measuring approximately 3.8 x 3.7 x 3.7 cm most consistent with a myometrial fibroid. The cervical length measures approximately 3.2 cm. There is a normal appearing intrauterine gestational sac. A yolk sac is present. There is a pole present with a crown rump length of 3.61 cm corresponding to a gestational age of 10 weeks four days The estimated date of confinement is 07/24/2019. Doppler imaging reveals a heart rate of 162 beats per minute. The right ovary is grossly normal in size, shape and echogenicity and measures: 4.7 x 2.5 x 2.3 cm. There is normal pulsed and color Doppler flow to the right ovary. There are no right adnexal mass lesions.. The left ovary is grossly normal in size, shape and echogenicity and measures: 2.6 x 1.4 x 1.5 cm. There is normal pulsed and color Doppler flow to the left ovary. There are no left adnexal mass lesions.. There is no free fluid in the pelvis. IMPRESSION: 1. Single living intrauterine with an estimated ultrasound age of 10 weeks four days corresponding to an estimated due date of 07/24/2019 This corresponds to within two days of the expected clinical gestational age. 2. No acute complications are identified. 3. Approximately 3.8 cm myometrial fibroid in the region of the uterine fundus to the left of midline.
[2018-12-30 07:32] LABS: ALBUMIN 4.2 g/dL (3.5-5.0); ALKALINE PHOSPHATASE 63 U/L (38-126); ANION GAP 8 (5-19); ASPARTATE AMINO TRANSFERASE 28 U/L (14-36); BILIRUBIN,DIRECT 0.1 mg/dL (0.0-0.4); BILIRUBIN,TOTAL 0.5 mg/dL (0.2-1.3); BLOOD UREA NITROGEN 4 mg/dL (7-20); CALCIUM 9.6 mg/dL (8.4-10.2); CARBON DIOXIDE 27 mmol/L (22-30); CHLORIDE 102 mmol/L (98-107); GLUCOSE 97 mg/dL (75-110); POTASSIUM 3.9 mmol/L (3.6-5.0); TOTAL PROTEIN 7.5 g/dL (6.3-8.2)
[2018-12-30 08:12] VITALS: BP 139/85
== END 2018-12-30 08:10 | disposition home or self-care (01) ==
LOC: ER 05:25
DX: O20.0 Threatened abortion (principal); R11.0 Nausea; Z3A.10 10 weeks gestation of pregnancy
CPT/HCPCS: 36415; 84702; 85025; 80053; 81001; 76801; J7030; 96360; 99284

== ENCOUNTER 2019-07-22 19:48 | Inpatient (IN) | payer MEDICAID ==
[2019-07-22] MEDS ORDERED: MISOPROSTOL 0.2 MG TABLET ONE (19:57)
[2019-07-22] MEDS ORDERED: OXYTOCIN/NORMAL SALINE 20 UNIT/1,000 ML RTUINJ ONE (19:57)
[2019-07-22] MEDS ORDERED: OXYTOCIN 10 UNIT/ML VIAL ONE (19:57)
[2019-07-22] MEDS ORDERED: LIDOCAINE 1% INJ-PF (10 MG/ML) 30 ML SDV ONE (19:57)
[2019-07-22] MEDS ORDERED: PENICILLIN G-K 5 MILLION UNIT VIAL ONE (19:58)
[2019-07-22] MEDS ORDERED: RINGERS SOLUTION,LACTATED 1,000 ML IV ONE (19:59)
[2019-07-22] MEDS ORDERED: PENICILLIN G POTASSIUM 5,000,000 UNIT in DEXTROSE 5%-WATER 100 ML IV ONE (19:59)
[2019-07-22] MEDS ORDERED: RINGERS SOLUTION,LACTATED 1,000 ML IV PRN (19:59)
--- NOTE | 2019-07-22 20:20 | Admission Physical ---
Datetime Report Generated by CPN: 07/22/2019 20:20 CURRENT ADMISSION Chief Complaint: Uterine Contractions Indication for Induction: Not Applicable Admit Impression : Term, Intrauterine Admit Plan: Admit to Unit; Initiate Labor Protocol ALLERGIES Medication Allergies: No Medication Allergies: No Known Drug Allergies (11/03/2017) Latex: No Latex Allergies OBSTETRICAL HISTORY EDC: 07/26/2019 00:00 : 3 Para: 2 Term: 2 Cesareans: 1 SEE RECORDS Alcohol: No Marijuana : No Cocaine: No Other Illicit Drugs: No Cigarettes: Never Smoker. [id number] PHYSICAL EXAM General: Normal HEENT: Normal Neurologic: Normal Thyroid: Normal Heart: Normal Lungs: Normal Breast: Deferred Back: Normal Abdomen: Normal Genitourinary Exam: Normal Extremities: Normal DTRs: Normal Pelvic Type: Adequate FETUS A EGA: 39.3 INFORMED CONSENT Signature: with User ID: [email or web address]
[2019-07-22] MEDS ORDERED: DIPHENHYDRAMINE HCL 25 MG CAPSULE PO PRN (20:44)
[2019-07-22] MEDS ORDERED: NA PHOS,M-B/NA PHOS,DI-BA (ADULT) 133 ML ENEMA PR PRN (20:44)
[2019-07-22] MEDS ORDERED: ACETAMINOPHEN WITH CODEINE #3 TABLET PO PRN (20:44)
[2019-07-22] MEDS ORDERED: BENZOCAINE/MENTHOL AEROSOL SPRAY 56 ML TOP PRN (20:44)
[2019-07-22] MEDS ORDERED: MEASLES,MUMPS&RUBELLA VACC/PF 0.5 ML VIAL SUBCUT PRN (20:44)
[2019-07-22] MEDS ORDERED: MAGNESIUM HYDROXIDE SUSP 30 ML UDCUP PO PRN (20:44)
[2019-07-22] MEDS ORDERED: DIPH/PERTUSS(ACELL)/TETANUS VAC/PF 0.5 ML SYR (>=10YO) IM PRN (20:44)
[2019-07-22] MEDS ORDERED: GLYCERIN/WITCH HAZEL LEAF 1 EACH MED..WIPE TP PRN (20:44)
[2019-07-22] MEDS ORDERED: DIBUCAINE 1% OINTMENT 28 GM TP PRN (20:44)
[2019-07-22] MEDS ORDERED: ZOLPIDEM TARTRATE 5 MG TABLET PO PRN (20:44)
[2019-07-22] MEDS ORDERED: OXYTOCIN/NORMAL SALINE 20 UNIT/1,000 ML RTUINJ IV PRN (20:44)
[2019-07-22] MEDS ORDERED: PROMETHAZINE HCL 25 MG TABLET PO PRN (20:44)
[2019-07-22] MEDS ORDERED: PROMETHAZINE HCL 25 MG SUPP.RECT PR PRN (20:44)
[2019-07-22] MEDS ORDERED: PROMETHAZINE HCL INJ 25 MG/1 ML VIAL IV PRN (20:44)
[2019-07-22] MEDS ORDERED: PSEUDOEPHEDRINE HCL 30 MG TABLET PO PRN (20:44)
[2019-07-22] MEDS ORDERED: ACETAMINOPHEN 650 MG SUPP.RECT PR PRN (20:44)
[2019-07-22] MEDS ORDERED: NIFEDIPINE 10 MG CAPSULE PO ONE (21:45)
[2019-07-22] MEDS ORDERED: NIFEDIPINE 10 MG CAPSULE ONE ×2 (21:46→22:20)
[2019-07-22 21:48] LABS: ABSOLUTE LYMPHOCYTES (AUTO) 1.6 10^3/uL (0.5-4.7); ABSOLUTE NEUT (AUTO) 15.3 10^3/uL (1.7-8.2); BASOPHILS % (AUTO) 0.2 % (0-2); HEMATOCRIT 34.9 % (36.0-47.0); HEMOGLOBIN 11.7 g/dL (12.0-15.5); LYMPHOCYTES % (AUTO) 9.1 % (13-45); MEAN CORPUSCULAR HEMOGLOBIN 31.6 pg (27.0-33.4); MEAN CORPUSCULAR HGB CONC 33.5 g/dL (32.0-36.0); MEAN CORPUSCULAR VOLUME 94 fl (80-97); MONOCYTES % (AUTO) 5.6 % (3-13); PLATELET COUNT 252 10^3/uL (150-450); RED BLOOD COUNT 3.71 10^6/uL (3.72-5.28); RED CELL DISTRIBUTION WIDTH 14.6 % (11.5-14.0); SEGMENTED NEUTROPHILS % (AUTO) 85.1 % (42-78); TOTAL CELLS COUNTED % (AUTO) 100 %
[2019-07-22] MEDS ORDERED: PENICILLIN G POTASSIUM 2,500,000 UNIT in DEXTROSE 5%-WATER 50 ML IV SCH (23:59)
[2019-07-23] MEDS: IBUPROFEN 800 MG TABLET PO SCH ×4 (00:27→21:33)
[2019-07-23] MEDS: FAMOTIDINE 20 MG TABLET PO SCH ×3 (00:28→21:33)
--- NOTE | 2019-07-23 00:59 | Delivery Summary ---
Del Sum A-C Datetime Report Generated by CPN: 07/23/2019 00:58 DELIVERY PERSONNEL DELIVERY PERSONNEL: [id number] Delivery Doctor:: Nam Bird MD Labor and Delivery Nurse:: Rody Lopez RNphoto equipment technician Nurse:: Yelena Stacy RN Nursery Nurse:: Christy Arguello RN Coroner/Medical Examiner/ROLLER PRINT TENDER: Kaur Rodriguez, ST MATERNAL INFORMATION Delivery Anesthesia: None Medications After Delivery: Pitocin Bolus-Please Comment; Pitocin Drip 20 Units/1000ml NSS Delivery QBL: 150 Maternal Complications: Precipitous Labor (<3hrs) LABOR SUMMARY EDC: 07/26/2019 00:00 No. Babies in Womb: 1 Attempted: Yes Labor Anesthesia: None LABOR INFORMATION Reason for Induction: Not Applicable Onset of Labor: 07/22/2019 19:30 Complete Dilatation: 07/22/2019 19:52 Oxytocin: N/A Group B Beta Strep: Positive Antibiotics # of Doses: 1 Antibiotics Time of Last Dose: 2009 Name of Antibiotic Given: PCN Steroids Given: None Reason Steroids Not Administered: Not Applicable MEMBRANES Membranes Rupture Method: Artificial Rupture of Membranes: 09/21/2019 20:22 Length of Rupture (hr): -1463.92 Amniotic Fluid Color: Light Meconium Amniotic Fluid Amount: Small Amniotic Fluid Odor: Normal STAGES OF LABOR Stage 1 hr: 0 Stage 1 min: 22 Stage 2 hr: 0 Stage 2 min: 35 Stage 3 hr: 0 Stage 3 min: 5 Total Time in Labor hr: 1 Total Time in Labor min: 2 VAGINAL DELIVERY Episiotomy: None Laceration #1: Perineal; Vaginal Laceration Extension #1: First Degree Laceration Repair: Yes Laceration Repair Note: repaired with 2-0 vicryl Sponge Count Correct: N/A CSECTION DELIVERY Primary Indication: N/A Secondary Indication: N/A CSection Incidence: N/A Labor: N/A Elective: N/A CSection Incision: N/A BABY A INFORMATION Delivery Date/Time: 07/22/2019 20:27 Method of Delivery: Vaginal Born in Route : No : Successful Forceps: N/A Vacuum Extraction: N/A Shoulder Dystocia : No PRESENTATION/POSITION BABY A Presentation: Cephalic Cephalic Presentation: Vertex Vertex Position: Right Occipital Anterior Breech Presentation: N/A PLACENTA INFORMATION BABY A Placenta Delivery Time : 07/22/2019 20:32 Placenta Method of Delivery: Manual Removal Placenta Status: Delivered SCORES BABY A Heart Rate 1 min: >100 bpm Resp Effort 1 min: Slow, Irregular Reflex Irritability 1 min: Cough or Sneeze or Pulls Away Muscle Tone 1 min: Some Flexion of Extremities Color 1 min: Body [place], Extremities Blue Resuscitation Effort 1 min: Tactile Stimulation SCORE 1 MIN: 7 Heart Rate 5 min: >100 bpm Resp Effort 5 min: Slow, Irregular Reflex Irritability 5 min: Cough or Sneeze or Pulls Away Muscle Tone 5 min: Active Motion Color 5 min: Body [place], Extremities Blue Resuscitation Effort 5 min: Tactile Stimulation SCORE 5 MIN: 8 INFORMATION BABY A Gestational Age at Delivery: 39.3 Gestational Status: Full Term- 39- 40.6 Weeks Outcome : Liveborn Condition : Stable Infant Sex: Male IDENTIFICATION BABY A Infant Verification Date/Time: 07/22/2019 20:35 ID Band Number: [id number] Mother's Name Verified: Yes RN Verifying Infant: Jocy Lopez, RN and Dejon Stacy, RN WEIGHT/LENGTH BABY A Birthweight (gm): 3724 Weight (lb): 8 Weight (oz): 3 Length (in): 20.50 Infant Length (cm): 52.07 CORD INFORMATION BABY A No. Cord Vessels: 3 Nuchal Cord : Around Neck x1, Tight Cord Blood Taken: No-Annotate Infant Suction: Mouth; Nose ASSESSMENT BABY A Complications: Meconium Physical Findings at Delivery: Within Normal Limits; Other Physical Findings- Other: see nursery note Skin to Skin: Yes Cabinet Mounter/ALS Called : No Infant Care By: Jocy Arguello RN Transferred To: Remains with Mother BABY B INFORMATION : N/A SIGNATURES Signature: with User ID: [email or web address]
[2019-07-23 01:38] LABS: APPEARANCE,URINE SLIGHTLY-CLOUDY; BILIRUBIN,URINE NEGATIVE (NEGATIVE); COLOR,URINE RED; GLUCOSE, URINE NEGATIVE (NEGATIVE); KETONES,URINE NEGATIVE (NEGATIVE); LEUKOCYTE ESTERASE,URINE SMALL (NEGATIVE); NITRITE,URINE NEGATIVE (NEGATIVE); PROTEIN,URINE 30 mg/dL (NEGATIVE); URINE SPECIFIC GRAVITY 1.005; UROBILINOGEN,URINE NEGATIVE mg/dL (<2.0)
[2019-07-23 01:58] LABS: URINE AMPHETAMINES SCREEN NEGATIVE; URINE BARBITURATES SCREEN NEGATIVE; URINE BENZODIAZEPINES SCREEN NEGATIVE; URINE COCAINE SCREEN NEGATIVE; URINE MARIJUANA (THC) SCREEN NEGATIVE; URINE METHADONE SCREEN NEGATIVE; URINE PHENCYCLIDINE SCREEN NEGATIVE
[2019-07-23 07:17] LABS: HEMATOCRIT 32.6 % (36.0-47.0); HEMOGLOBIN 10.9 g/dL (12.0-15.5); MEAN CORPUSCULAR HEMOGLOBIN 30.6 pg (27.0-33.4); MEAN CORPUSCULAR HGB CONC 33.5 g/dL (32.0-36.0); MEAN CORPUSCULAR VOLUME 92 fl (80-97); PLATELET COUNT 243 10^3/uL (150-450); RED BLOOD COUNT 3.56 10^6/uL (3.72-5.28); RED CELL DISTRIBUTION WIDTH 14.5 % (11.5-14.0); WHITE BLOOD COUNT 16.9 10^3/uL (4.0-10.5)
[2019-07-23] MEDS: FERROUS SULFATE 325 MG TABLET PO SCH ×2 (09:18→17:52)
[2019-07-23] MEDS: PRENATAL VITAMIN W DHA CAPSULE PO SCH (09:18)
[2019-07-23] MEDS: DOCUSATE SODIUM 100 MG CAPSULE PO SCH ×2 (09:18→17:52)
[2019-07-23] MEDS: SENNOSIDES/DOCUSATE 8.6-50 MG 1 EACH TABLET PO SCH (09:18)
--- NOTE | 2019-07-23 11:09 | PDOC PROGRESS REPORT ---
Subjective-OB Progress Note for:: 07/23/19 - PP Day #1, doing well, UOP voiding, A+ Rubella Immune, , successful Physical Exam (OB) Vital Signs: Temp Pulse Resp BP Pulse Ox 97.6 F 96 16 131/80 H 99 07/23/19 07:57 07/23/19 07:57 07/23/19 07:57 07/23/19 07:57 07/23/19 07:57 Intake & Output 07/22/19 07/23/19 07/24/19 06:59 06:59 06:59 Intake Total 240 480 Output Total 450 Balance -210 480 Weight 94.9 kg - General General Appearance: Appears well, Alert In distress: None - PIH/Pre-Eclampsia Clonus: Negative Headache: Absent Epigastric Pain: No Visual Changes: No - Lochia Lochia Amount: Scant < 10 ml Lochia Color: Serosa/Brown - Abdomen Description: Soft, Flat Hernia Present: No Fundal Description: Firm, Midline Fundal Height: u/u - u/2 - Respiratory Respiratory Status: No respiratory distress - Abdominal Distension: No distension Tenderness: Nontender - Genitourinary Genitourinary Note: voiding - Extremities Upper extremity: Normal inspection Lower extremities: Normal inspection - Neurological Cognition: Normal Orientation: AAOx4 - Skin Skin Temperature: Warm Skin Moisture: Dry Objective-Diagnostic Laboratory: 07/23/19 06:50 07/22/19 07/22/19 07/23/19 21:10 21:10 00:58 WBC 18.0 H RBC 3.71 L Hgb 11.7 L Hct 34.9 L MCV 94 MCH 31.6 MCHC 33.5 RDW 14.6 H Plt Count 252 Seg Neutrophils % 85.1 H Urine Color RED Urine Appearance SLIGHTLY-CLOUDY Urine pH 7.0 Ur Specific [place] 1.005 Urine Protein 30 H Urine Glucose (UA) NEGATIVE Urine Ketones NEGATIVE Urine Blood LARGE H Urine Nitrite NEGATIVE Ur Leukocyte Esterase SMALL H Blood Type A POSITIVE Antibody Screen NEGATIVE 07/23/19 06:50 WBC 16.9 H RBC 3.56 L Hgb 10.9 L Hct 32.6 L MCV 92 MCH 30.6 MCHC 33.5 RDW 14.5 H Plt Count 243 Seg Neutrophils % Urine Color Urine Appearance Urine pH Ur Specific [place] Urine Protein Urine Glucose (UA) Urine Ketones Urine Blood Urine Nitrite Ur Leukocyte Esterase Blood Type Antibody Screen Assessment and Plan(PN) Plan:: Routine PP orders, ambulation encouraged - Time Spent with Patient Time with patient: Less than 15 minutes Medications reviewed and adjusted accordingly: Yes - Disposition Anticipated Discharge: Home Within: within 24 hours
[2019-07-24] MEDS: IBUPROFEN 800 MG TABLET PO SCH ×2 (05:26→13:51)
[2019-07-24 05:40] LABS: ABSOLUTE EOSINOPHILS # (AUTO) 0.1 10^3/uL (0.0-0.6); ABSOLUTE LYMPHOCYTES (AUTO) 2.8 10^3/uL (0.5-4.7); ABSOLUTE MONOCYTES (AUTO) 0.9 10^3/uL (0.1-1.4); ABSOLUTE NEUT (AUTO) 9.2 10^3/uL (1.7-8.2); BASOPHILS % (AUTO) 0.1 % (0-2); EOSINOPHILS % (AUTO) 0.4 % (0-6); HEMATOCRIT 33.5 % (36.0-47.0); HEMOGLOBIN 11.3 g/dL (12.0-15.5); LYMPHOCYTES % (AUTO) 21.5 % (13-45); MEAN CORPUSCULAR HEMOGLOBIN 30.9 pg (27.0-33.4); MEAN CORPUSCULAR HGB CONC 33.9 g/dL (32.0-36.0); MEAN CORPUSCULAR VOLUME 91 fl (80-97); MONOCYTES % (AUTO) 7.1 % (3-13); PLATELET COUNT 238 10^3/uL (150-450); RED BLOOD COUNT 3.67 10^6/uL (3.72-5.28); RED CELL DISTRIBUTION WIDTH 14.5 % (11.5-14.0); SEGMENTED NEUTROPHILS % (AUTO) 70.9 % (42-78); TOTAL CELLS COUNTED % (AUTO) 100 %; WHITE BLOOD COUNT 12.9 10^3/uL (4.0-10.5)
[2019-07-24] MEDS ORDERED: NIFEDIPINE 30 MG TAB.ER.24 PO ONE (06:00)
[2019-07-24 06:17] LABS: ALBUMIN 3.1 g/dL (3.5-5.0); ALKALINE PHOSPHATASE 148 U/L (38-126); ANION GAP 5 (5-19); ASPARTATE AMINO TRANSFERASE 29 U/L (14-36); BILIRUBIN,DIRECT 0.2 mg/dL (0.0-0.4); BILIRUBIN,TOTAL 0.3 mg/dL (0.2-1.3); BLOOD UREA NITROGEN 5 mg/dL (7-20); CALCIUM 9.2 mg/dL (8.4-10.2); CARBON DIOXIDE 23 mmol/L (22-30); CHLORIDE 108 mmol/L (98-107); GLUCOSE 71 mg/dL (75-110); POTASSIUM 4.4 mmol/L (3.6-5.0); TOTAL PROTEIN 6.3 g/dL (6.3-8.2); URIC ACID 4.5 mg/dL (2.5-6.2)
[2019-07-24] MEDS: FERROUS SULFATE 325 MG TABLET PO SCH (09:46)
[2019-07-24] MEDS: PRENATAL VITAMIN W DHA CAPSULE PO SCH (09:47)
[2019-07-24] MEDS: FAMOTIDINE 20 MG TABLET PO SCH (09:47)
[2019-07-24] MEDS: DOCUSATE SODIUM 100 MG CAPSULE PO SCH (09:47)
[2019-07-24] MEDS: SENNOSIDES/DOCUSATE 8.6-50 MG 1 EACH TABLET PO SCH (09:47)
--- NOTE | 2019-07-24 10:51 | PDOC DISCHARGE SUMMARY ---
Impression - Admit/DC Date/PCP Admission Date/Primary Care Provider: 07/22/19 19:59 CAROLINE BLUNT MD Discharge Date: 07/24/19 - PP Day #2, doing well, A+, rubella immune, - Additional Information Resuscitation Status: Full Code Discharge Diet: As Tolerated, Regular Referrals: CAROLINE BLUNT MD [Primary Care Provider] - Prescriptions: Ibuprofen [Motrin 800 mg Tablet] 800 mg PO Q8 #60 tablet Nifedipine [Procardia XL 30 mg Tablet] 30 mg PO DAILY 30 Days #30 tab.er.24 Home Medications: Ibuprofen [Motrin 800 mg Tablet] 800 mg PO Q8 #60 tablet 07/24/19 Nifedipine [Procardia XL 30 mg Tablet] 30 mg PO DAILY 30 Days #30 tab.er.24 07/24/19 HPI Reason(s) for Admission: Induction of Labor Admission Note: TN Intrapartum Procedure(s): Spontaneous Vaginal Delivery Complication(s): Laceration-Vaginal Laceration-Degree: 1st Results Laboratory Results: WBC 12.9 10^3/uL (4.0-10.5) H 07/24/19 05:32 RBC 3.67 10^6/uL (3.72-5.28) L 07/24/19 05:32 Hgb 11.3 g/dL (12.0-15.5) L 07/24/19 05:32 Hct 33.5 % (36.0-47.0) L 07/24/19 05:32 MCV 91 fl (80-97) 07/24/19 05:32 MCH 30.9 pg (27.0-33.4) 07/24/19 05:32 MCHC 33.9 g/dL (32.0-36.0) 07/24/19 05:32 RDW 14.5 % (11.5-14.0) H 07/24/19 05:32 Plt Count 238 10^3/uL (150-450) 07/24/19 05:32 Lymph % (Auto) 21.5 % (13-45) 07/24/19 05:32 [place] % (Auto) 7.1 % (3-13) 07/24/19 05:32 Eos % (Auto) 0.4 % (0-6) 07/24/19 05:32 Baso % (Auto) 0.1 % (0-2) 07/24/19 05:32 Absolute Neuts (auto) 9.2 10^3/uL (1.7-8.2) H 07/24/19 05:32 Absolute Lymphs (auto) 2.8 10^3/uL (0.5-4.7) 07/24/19 05:32 Absolute Monos (auto) 0.9 10^3/uL (0.1-1.4) 07/24/19 05:32 Absolute Eos (auto) 0.1 10^3/uL (0.0-0.6) 07/24/19 05:32 Absolute Basos (auto) 0.0 10^3/uL (0.0-0.2) 07/24/19 05:32 Seg Neutrophils % 70.9 % (42-78) 07/24/19 05:32 Sodium 135.7 mmol/L (137-145) L 07/24/19 05:32 Potassium 4.4 mmol/L (3.6-5.0) 07/24/19 05:32 Chloride 108 mmol/L (98-107) H 07/24/19 05:32 Carbon Dioxide 23 mmol/L (22-30) 07/24/19 05:32 Anion Gap 5 (5-19) 07/24/19 05:32 BUN 5 mg/dL (7-20) L 07/24/19 05:32 Creatinine 0.41 mg/dL (0.52-1.25) L 07/24/19 05:32 Est GFR ( Amer) > 60 (>60) 07/24/19 05:32 Est GFR (MDRD) Non-Af > 60 (>60) 07/24/19 05:32 Glucose 71 mg/dL (75-110) L 07/24/19 05:32 Uric Acid 4.5 mg/dL (2.5-6.2) 07/24/19 05:32 Calcium 9.2 mg/dL (8.4-10.2) 07/24/19 05:32 Total Bilirubin 0.3 mg/dL (0.2-1.3) 07/24/19 05:32 Direct Bilirubin 0.2 mg/dL (0.0-0.4) 07/24/19 05:32 Neonat Total Bilirubin Not Reportable 07/24/19 05:32 Neonat Direct Bilirubin Not Reportable 07/24/19 05:32 Neonat Indirect Bili Not Reportable 07/24/19 05:32 AST 29 U/L (14-36) 07/24/19 05:32 ALT 18 U/L (<35) 07/24/19 05:32 Alkaline Phosphatase 148 U/L (38-126) H 07/24/19 05:32 Lactate Dehydrogenase 203 U/L (120-246) 07/24/19 05:32 Total Protein 6.3 g/dL (6.3-8.2) 07/24/19 05:32 Albumin 3.1 g/dL (3.5-5.0) L 07/24/19 05:32 Urine Color RED 07/23/19 00:58 Urine Appearance SLIGHTLY-CLOUDY 07/23/19 00:58 Urine pH 7.0 (5.0-9.0) 07/23/19 00:58 Ur Specific [place] 1.005 07/23/19 00:58 Urine Protein 30 mg/dL (NEGATIVE) H 07/23/19 00:58 Urine Glucose (UA) NEGATIVE mg/dL (NEGATIVE) 07/23/19 00:58 Urine Ketones NEGATIVE mg/dL (NEGATIVE) 07/23/19 00:58 Urine Blood LARGE (NEGATIVE) H 07/23/19 00:58 Urine Nitrite NEGATIVE (NEGATIVE) 07/23/19 00:58 Urine Bilirubin NEGATIVE (NEGATIVE) 07/23/19 00:58 Urine Urobilinogen NEGATIVE mg/dL (<2.0) 07/23/19 00:58 Ur Leukocyte Esterase SMALL (NEGATIVE) H 07/23/19 00:58 Urine Ascorbic Acid NEGATIVE (NEGATIVE) 07/23/19 00:58 Urine Opiates Screen NEGATIVE 07/23/19 00:58 Urine Methadone Screen NEGATIVE 07/23/19 00:58 Ur Barbiturates Screen NEGATIVE 07/23/19 00:58 Ur Phencyclidine Scrn NEGATIVE 07/23/19 00:58 Ur Amphetamines Screen NEGATIVE 07/23/19 00:58 U Benzodiazepines Scrn NEGATIVE 07/23/19 00:58 Urine Cocaine Screen NEGATIVE 07/23/19 00:58 U Marijuana (THC) Screen NEGATIVE 07/23/19 00:58 RPR NONREACTIVE (NONREACTIVE) 07/22/19 21:10 Blood Type A POSITIVE 07/22/19 21:10 Antibody Screen NEGATIVE 07/22/19 21:10 Plan Plan of Treatment: d/c home, f/up for a BP with [facility] in one week Time Spent: Less than 30 Minutes
[2019-07-24 15:02] VITALS: BP 127/71
[2019-07-25] MEDS ORDERED: NIFEDIPINE 30 MG TAB.ER.24 PO SCH (10:00)
== END 2019-07-24 18:58 | disposition home or self-care (01) | DRG 807 ==
LOC: LC 19:48 → LR 19:59 → 2S 07-23
PROVIDERS: ADMIT Obstetrics & Gynecology Gynecology; ATTEND Obstetrics & Gynecology Gynecology
PROC: 10D07Z6 Extraction of Products of Conception, Vacuum, Via Natural or Artificial Opening (ICD-10-PCS; principal; 2019-07-22)
PROC: 0HQ9XZZ Repair Perineum Skin, External Approach (ICD-10-PCS; 2019-07-22)
DX: O62.3 Precipitate labor (principal); Z37.0 Single live birth; O77.0 Labor and delivery complicated by meconium in amniotic fluid; O69.1XX0 Labor and delivery complicated by cord around neck, with compression, not applicable or unspecified; O13.4 Gestational [pregnancy-induced] hypertension without significant proteinuria, complicating childbirth; O70.0 First degree perineal laceration during delivery; O99.824 Streptococcus B carrier state complicating childbirth; Z3A.39 39 weeks gestation of pregnancy
CPT/HCPCS: 36415; 80053; 80307; 81005; 83615; 84550; 85025; 85027; 86592; 86850; 86900; 86901; J2540; J2590; J3490; J7060